=== PATIENT | female | born 1975 | race Caucasian/White ===

== ENCOUNTER 2017-01-22 01:51 | Emergency (ER) | payer MEDICARE, OTHER ==
[~2017-01-22] VITALS: Ht 167.6 cm; Wt 99.0 kg
[2017-01-22 02:01] VITALS: Ht 167.6 cm; Wt 99.0 kg
--- NOTE | 2017-01-22 02:51 | ERA ---
ER Documentation Chief Complaint Date/Time DATE: 01/22/17 TIME: 02:51 Chief Complaint suicidal ideation, hx-depression HPI The patient is a 41-year-old female, presenting with acute suicidal ideation. She has been drinking and not able to provide significant history. She denies auditory, visual hallucination Past medical/surgical history/social history/review of system: Limited due to her clinical condition ROS All systems reviewed and are negative except as per history of present illness. Medications Home Meds No Active Prescriptions or Reported Meds Allergies Allergies: Coded Allergies: No Known Allergy (Unverified , 01/22/17) Physical Exam Vitals Vital Signs Date Time Temp Pulse Resp B/P Pulse Ox O2 Delivery O2 Flow Rate FiO2 01/22/17 06:55 98.7 91 16 113/53 98 Room Air 01/22/17 04:45 88 20 131/77 98 Room Air 01/22/17 03:16 97.8 01/22/17 02:01 98.2 99 20 133/80 98 Physical Exam Const: No acute distress. Intoxicated Head: Atraumatic. Eyes: Normal Conjunctiva. ENT: Normal External Ears, Nose and Mouth. Neck: Full range of motion. No meningismus. Resp: Clear to auscultation bilaterally. Cardio: Regular rate and rhythm. Abd: Soft, non distended, normal bowel sounds, non tender. Skin: No petechiae or rashes. Back: No midline or flank tenderness. Ext: No cyanosis, or edema. Neur: Awake and alert. No focal deficit Psych: Limited due to her clinical condition Result Diagram: 01/22/17 0311 01/22/17 0311 Results 24 hrs Laboratory Tests Test 01/22/17 02:36 01/22/17 03:11 Urine Color STRAW Urine Clarity SLIGHTLY CLOUDY Urine pH 5.0 Urine Specific [place] 1.004 Urine Ketones NEGATIVEmg/dL Urine Nitrite NEGATIVEmg/dL Urine Bilirubin NEGATIVEmg/dL Urine Urobilinogen NEGATIVEmg/dL Urine Leukocyte Esterase 1+Jazlyn/ul Urine Microscopic RBC 1/HPF Urine Microscopic WBC 15/HPF Urine Squamous Epithelial Cells FEW/HPF Urine Amorphous Crystals FEW/HPF Urine Bacteria FEW/HPF Urine Hemoglobin 1+mg/dL Urine Glucose NEGATIVEmg/dL Urine Total Protein NEGATIVEmg/dl Urine Opiates Screen Negative Urine Barbiturates Negative Urine Amphetamines Screen Negative Urine Benzodiazepines Screen Negative Urine Cocaine Screen Negative Urine Cannabinoids Negative White Blood Count 14.910^3/ul Red Blood Count 4.2410^6/ul Hemoglobin 12.2g/dl Hematocrit 39.2% Mean Corpuscular Volume 92.5fl Mean Corpuscular Hemoglobin 28.8pg Mean Corpuscular Hemoglobin Concent 31.1g/dl Red Cell Distribution Width 14.2% Platelet Count 20810^3/UL Mean Platelet Volume 9.5fl Neutrophils % 66.5% Lymphocytes % 24.5% Monocytes % 4.0% Eosinophils % 1.4% Basophils % 0.9% Nucleated Red Blood Cells % 0.0/100WBC Neutrophils # (Manual) 9.910^3/ul Lymphocytes # 3.710^3/ul Monocytes # 0.610^3/ul Eosinophils # 0.210^3/ul Basophils # 0.110^3/ul Nucleated Red Blood Cells # 0.010^3/ul Sodium Level 150mmol/L Potassium Level 4.2mmol/L Chloride Level 105mmol/L Carbon Dioxide Level 27mmol/L Anion Gap 22 Blood Urea Nitrogen 7mg/dl Creatinine 0.71mg/dl Glucose Level 121mg/dl Calcium Level 8.9mg/dl Total Bilirubin 0.0mg/dl Direct Bilirubin 0.00mg/dl Indirect Bilirubin 0.0mg/dl Aspartate Amino Transf (AST/SGOT) 22IU/L Alanine Aminotransferase (ALT/SGPT) 38IU/L Alkaline Phosphatase 102IU/L Total Protein 8.2g/dl Albumin 4.3g/dl Globulin 3.90g/dl Albumin/Globulin Ratio 1.10 Serum HCG, Qualitative NEGATIVE Salicylates Level < 1.0mg/dl Acetaminophen Level < 10.0ug/ml Ethyl Alcohol Level 277.0mg/dl Current Medications Medications (Trade) Dose Ordered Sig/Adan Route PRN Reason Start Time Stop Time Status Last Admin Dose Admin Trimethoprim/ Sulfamethoxazole (Bactrim (Ds)) 1 tab ONCE ONCE PO 01/22/17 04:00 01/22/17 04:02 DC 01/22/17 04:18 Procedures/MDM MEDICAL MAKING DECISION: The patient is a 41-year-old female, presenting with acute suicidal ideation, acute cystitis, acute alcohol intoxication. He was treated with Bactrim DS for acute cystitis The differential diagnoses considered include but are not limited to drug- induced psychosis, psychosis, decompensated ,psychiatric illness, anxiety attack , panic attack Departure Diagnosis: Primary Impression: Suicidal ideation Additional Impressions: Cystitis Alcohol intoxication Condition: Stable Comments She will be evaluated by telepsychiatrist when she is sober The patient's blood pressure was elevated (>120/80) but appears stable without evidence of hypertension emergency or urgency. The patient was counseled about the risks of hypertension and urged to pursue outpatient monitoring and therapy within a week with their primary care physician. MARILU BRYAN MD Jan 22, 2017 02:50
[2017-01-22 03:28] LABS: BASOPHIL # 0.1 10^3/ul (0.0-0.1); BASOPHILS % 0.9 % (0.0-2.0); EOSINOPHILS # 0.2 10^3/ul (0.0-0.5); EOSINOPHILS % 1.4 % (0.0-7.0); HEMATOCRIT 39.2 % (37.0-47.0); HEMOGLOBIN 12.2 g/dl (12.0-16.0); LYMPHOCYTES # 3.7 10^3/ul (0.8-2.9); LYMPHOCYTES % 24.5 % (15.0-51.0); MEAN CORPUSCULAR HEMOGLOBIN 28.8 pg (29.0-33.0); MEAN CORPUSCULAR HGB CONC 31.1 g/dl (32.0-37.0); MEAN CORPUSCULAR VOLUME 92.5 fl (82.0-101.0); MEAN PLATELET VOLUME 9.5 fl (7.4-10.4); MONOCYTE # 0.6 10^3/ul (0.3-0.9); NEUTROPHILS % 66.5 % (39.0-77.0); PLATELET COUNT 386 10^3/UL (140-415); RED BLOOD COUNT 4.24 10^6/ul (4.20-5.40); RED CELL DISTRIBUTION WIDTH 14.2 % (11.5-14.5); WHITE BLOOD COUNT 14.9 10^3/ul (4.8-10.8)
[2017-01-22 03:44] LABS: ALANINE AMINOTRANSFERASE 38 IU/L (13-69); ALBUMIN 4.3 g/dl (3.3-4.9); ALKALINE PHOSPHATASE 102 IU/L (42-121); ANION GAP 22 (8-16); ASPARTATE AMINO TRANSFERASE 22 IU/L (15-46); BLOOD UREA NITROGEN 7 mg/dl (7-20); CALCIUM 8.9 mg/dl (8.4-10.2); CARBON DIOXIDE 27 mmol/L (21-31); CHLORIDE 105 mmol/L (97-110); CREATININE 0.71 mg/dl (0.44-1.00); GLUCOSE 121 mg/dl (70-220); POTASSIUM 4.2 mmol/L (3.5-5.1); SODIUM 150 mmol/L (135-144); TOTAL PROTEIN 8.2 g/dl (6.1-8.1)
[2017-01-22 03:50] LABS: ACETAMINOPHEN < 10.0 ug/ml (10.0-30.0); SALICYLATE < 1.0 mg/dl (5.0-30.0)
[2017-01-22 03:50] LABS: BARBITURATES Negative (NEGATIVE); BENZODIAZEPINES Negative (NEGATIVE); CANNABINOIDS Negative (NEGATIVE); COCAINE Negative (NEGATIVE); OPIATES Negative (NEGATIVE)
[2017-01-22 03:51] LABS: ADD UMIC YES; UR AMORPHOUS CRYSTAL FEW /HPF (NONE SEEN); UR ASCORBIC ACID NEGATIVE (NEGATIVE); UR BACTERIA FEW /HPF (NONE SEEN); UR BILIRUBIN (Dip) NEGATIVE (NEGATIVE); UR BLOOD (Dip) 1+ mg/dL (NEGATIVE); UR CLARITY SLIGHTLY CLOUDY (CLEAR); UR COLOR STRAW (YELLOW); UR GLUCOSE (Dip) NEGATIVE (NEGATIVE); UR KETONES (Dip) NEGATIVE (NEGATIVE); UR LEUKOCYTE ESTERASE (Dip) 1+ Leu/ul (NEGATIVE); UR NITRITE (Dip) NEGATIVE (NEGATIVE); UR RBC 1 /HPF (0-5); UR SPECIFIC GRAVITY (Dip) 1.004 (1.003-1.030); UR SQUAMOUS EPITHELIAL CELL FEW /HPF (FEW); UR TOTAL PROTEIN (Dip) NEGATIVE (NEGATIVE); UR UROBILINOGEN (Dip) NEGATIVE (NEGATIVE)
[2017-01-22] MEDS ORDERED: TRIMETHOPRIM/SULFAMETHOX (DS) TAB PO ONE (04:00)
--- NOTE | 2017-01-22 08:31 | PSY ---
Date/Time of Note Date/Time of Note DATE: 01/22/17 TIME: 08:21 Psychiatric Subjective Eval Subjective Evaluation Chief Complaint: suicidal ideation, hx-depression History of present illness 41 yo single disabled female with hx Bipoalr d/o and alcohol use disorder selfpresented to ED intoxicated with active SI. BAL 240. Pt is clinically sober now, still reprots active SI w/o a plan. Depressed, hopeless, helpless, despondent, no psychosis, no HI, no AH no VH. Pt is on Prozac, Neurontin, Trazodone, [place], Klonopin, Seroquel. Stops meds if drinks. Not christo to contract for safety. Past psychiatric history hx prior SA, last inpt and SA was a a few months ago Hospitalization: Suicidal Attempt(s) Family History denies Medical history Problems Medical Problems: (1) Alcohol intoxication Status: Acute (2) Cystitis Status: Acute (3) Suicidal ideation Status: Acute Allergies: Coded Allergies: No Known Allergy (Unverified , 01/22/17) Substance Abuse Substance abuse history: Yes Prior substance abuse treatmen: Yes Social History Marital status: single DPA/Conservatorship: No Occupation/Care Home: unemployed, livs in a transitional housing Psychiatric Objective Eval Review of Systems: Review of Systems: Not Applicable Physical Examination: Physical Examination: Not Applicable Energy: Decreased Interest: Decreased Mental Status Examination: Appearance: Disheveled Eye Contact: Good Psychomotor Activity: Normal Behavior: Cooperative Speech: Clear, Monotone AFFECT: Depressed Mood: Depressed Though Process: Linear Thought Content: Normal Suicidal: Yes Homicidal: No On 72 hour hold: No Orientation: x4 Cognition: Alert Insight: Impared Judgement: Impared Laboratory Results Laboratory Tests Test 01/22/17 02:36 01/22/17 03:11 Urine Color STRAW Urine Clarity SLIGHTLY CLOUDY Urine pH 5.0 Urine Specific [place] 1.004 Urine Ketones NEGATIVEmg/dL Urine Nitrite NEGATIVEmg/dL Urine Bilirubin NEGATIVEmg/dL Urine Urobilinogen NEGATIVEmg/dL Urine Leukocyte Esterase 1+Jazlyn/ul Urine Microscopic RBC 1/HPF Urine Microscopic WBC 15/HPF Urine Squamous Epithelial Cells FEW/HPF Urine Amorphous Crystals FEW/HPF Urine Bacteria FEW/HPF Urine Hemoglobin 1+mg/dL Urine Glucose NEGATIVEmg/dL Urine Total Protein NEGATIVEmg/dl Urine Opiates Screen Negative Urine Barbiturates Negative Urine Amphetamines Screen Negative Urine Benzodiazepines Screen Negative Urine Cocaine Screen Negative Urine Cannabinoids Negative White Blood Count 14.910^3/ul Red Blood Count 4.2410^6/ul Hemoglobin 12.2g/dl Hematocrit 39.2% Mean Corpuscular Volume 92.5fl Mean Corpuscular Hemoglobin 28.8pg Mean Corpuscular Hemoglobin Concent 31.1g/dl Red Cell Distribution Width 14.2% Platelet Count 23805^3/UL Mean Platelet Volume 9.5fl Neutrophils % 66.5% Lymphocytes % 24.5% Monocytes % 4.0% Eosinophils % 1.4% Basophils % 0.9% Nucleated Red Blood Cells % 0.0/100WBC Neutrophils # (Manual) 9.910^3/ul Lymphocytes # 3.710^3/ul Monocytes # 0.610^3/ul Eosinophils # 0.210^3/ul Basophils # 0.110^3/ul Nucleated Red Blood Cells # 0.010^3/ul Sodium Level 150mmol/L Potassium Level 4.2mmol/L Chloride Level 105mmol/L Carbon Dioxide Level 27mmol/L Anion Gap 22 Blood Urea Nitrogen 7mg/dl Creatinine 0.71mg/dl Glucose Level 121mg/dl Calcium Level 8.9mg/dl Total Bilirubin 0.0mg/dl Direct Bilirubin 0.00mg/dl Indirect Bilirubin 0.0mg/dl Aspartate Amino Transf (AST/SGOT) 22IU/L Alanine Aminotransferase (ALT/SGPT) 38IU/L Alkaline Phosphatase 102IU/L Total Protein 8.2g/dl Albumin 4.3g/dl Globulin 3.90g/dl Albumin/Globulin Ratio 1.10 Serum HCG, Qualitative NEGATIVE Salicylates Level < 1.0mg/dl Acetaminophen Level < 10.0ug/ml Ethyl Alcohol Level 277.0mg/dl Assessment and Plan Assessment/Diagnosis [place] I: BIPOLAR DISORDER, UNSPECIFIED, DEPRESSED. ALCOHOL USE DISORDER. [place] II: DEFERED [place] III: NAD [place] IV: MODERATE [place] V: GAF 25 Recommendation/Plan Medication Management PLEASE CONTINUE HOMEMEDS; PLEASE VERIFY THE DOSES AT PT'S HOME PHARMACY. PTIS ON LITHIUM, TRAZDONE, PROZAC, SEROQUEL, NEURONTIN. PLEASE HOLD KLONOPIN AND INITIATE ALCOHOL DETOX [PROTOCOL WITH ATIVAN IN ACCORDANCE WITH CIWA. Psychotherapy DEFER TO INPT Pt. Caregiver/Family Education N/A Follow-up/Disposition TRANSFER TO INPT PSYCH DUE TO DTS; PT CAN BE TRANSFERRED VOLUNTARY - SHE AGREES. IF PT DEMANDS TO LEAVE SHE NEEDS TO BE RE-EVALUATED. [id number] Recommendation: HERRERA CESAR MD Jan 22, 2017 08:31
[2017-01-22] MEDS ORDERED: LIT300 PO (09:11)
[2017-01-22] MEDS ORDERED: FLUO20CA38 PO (09:11)
[2017-01-22] MEDS ORDERED: GABA-526 PO (09:12)
[2017-01-22] MEDS ORDERED: CLON0.5T4 PO (09:12)
[2017-01-22] MEDS ORDERED: TRAZ50TA18 PO (09:12)
[2017-01-22] MEDS ORDERED: FLUOXETINE 20 MG CAP PO SCH (09:30)
[2017-01-22] MEDS ORDERED: clonAZEPAM 0.5 MG TAB PO PRN (09:30)
[2017-01-22] MEDS ORDERED: IBUPROFEN 800 MG TAB PO ONE (10:00)
[2017-01-22] MEDS ORDERED: GABAPENTIN 300 MG CAP PO SCH (13:00)
[2017-01-22] MEDS: LITHIUM CARBONATE 300 MG CAP PO SCH ×2 (13:12→20:41)
[2017-01-22 20:28] VITALS: BP 128/75; PULSE 90; RESP 15; TEMP 98.3
== END 2017-01-22 20:45 ==
LOC: E/R 01:51
DX: R45.851 Suicidal ideations (principal); N30.90 Cystitis, unspecified without hematuria; F10.120 Alcohol abuse with intoxication, uncomplicated
CPT/HCPCS: 36415; 80053; 80306; 80307; 81001; 84703; 85025; 99285